=== PATIENT | female | born 1960 ===

== ENCOUNTER 2018-01-10 06:29 | Day surgery (SDC) | payer MEDICARE ==
[2015-08-05 08:24] VITALS: BMI 31.3
[2018-01-10] MEDS ORDERED: Midazolam 2 MG/2 ML VIAL ONE (08:16)
[2018-01-10] MEDS ORDERED: Propofol 10 mg/ml Inj (20 ML) ONE (08:16)
[2018-01-10] MEDS ORDERED: Sodium Chloride 0.9% 1,000 ML IV SCH (08:45)
[2018-01-10 08:49] VITALS: RESP 16
[2018-01-10 09:23] VITALS: BP 152/97; PULSE 68; TEMP 97.6; O2SAT 95
== END 2018-01-10 09:41 | disposition home or self-care (01) ==
LOC: ENDO 06:29
PROVIDERS: ATTEND Internal Medicine Gastroenterology
DX: R13.10 Dysphagia, unspecified (principal); K20.9 Esophagitis, unspecified; K44.9 Diaphragmatic hernia without obstruction or gangrene; K29.70 Gastritis, unspecified, without bleeding; I10 Essential (primary) hypertension; E78.5 Hyperlipidemia, unspecified; E78.00 Pure hypercholesterolemia, unspecified; K21.9 Gastro-esophageal reflux disease without esophagitis; K29.50 Unspecified chronic gastritis without bleeding; G47.00 Insomnia, unspecified; F32.89 Other specified depressive episodes; F41.0 Panic disorder [episodic paroxysmal anxiety]; E07.9 Disorder of thyroid, unspecified; M19.90 Unspecified osteoarthritis, unspecified site; K59.00 Constipation, unspecified; Z90.710 Acquired absence of both cervix and uterus; F17.210 Nicotine dependence, cigarettes, uncomplicated
CPT/HCPCS: 43239; 88305; 88312; 88342; J2001; J2250; J2704; J3010; J7030; J7040